=== PATIENT | female | born 1960 | race Caucasian/White ===

== ENCOUNTER 2023-12-21 14:03 | Emergency (ER) | payer OTHER, SELFPAY ==
[2023-12-21 14:10] VITALS: BP 130/74
--- NOTE | 2023-12-21 15:45 | ED.GENMED ---
History of Present Illness
General
Chief Complaint: DVT/Possible Blood Clot
Source: patient
Time Seen by Provider: 12/21/23 15:39
Travel History
Have you had any contact with someone who has COVID-19?: No
Do you have any symptoms of coronavirus? Fever > 100 degrees, chills, cough, shortness of breath, sore throat, loss of taste or smell, muscle aches, or headache?: No
History of Present Illness
History of Present Illness:
63-year-old female with past medical history of cardiac disease status post pacemaker placement, hypothyroidism, PMR presenting to the emergency department for evaluation at the request of her primary care physician after patient noted some pain and
swelling to her left lower leg over the last 24 to 48 hours. Patient denies any trauma. She does note that she felt these lumps' back of her leg which she thought at times looked as if they were moving. She denies any history of similar. No
fevers or infectious symptoms.
Past History
Past History
ED Past Medical History: Arrthythmia (Atrial tachycardia), NIDDM and Hypothyroidism
ED Past Surgical History: Cardiac and
Social History
Tobacco: Non-smoker
Alcohol: None
Drug: None
Personal:
Living: with family
Review of Systems
Review of Systems
All Other Systems: ROS reviewed and negative except as documented in HPI and ROS
Phy Exam
Physical Exam
Physical Exam:
GENERAL: Alert , in no apparent distress
EYE: conjunctiva clear
Head: Normocephalic atraumatic
NECK: Supple,
ENT: mmm.
LUNGS: no acute respiratory distress
NEUROLOGICAL: Alert and oriented
SKIN: Warm and dry, skin intact.
MUSCULOSKELETAL: Mild hyperpigmented skin changes along the anterior lower tib-fib region consistent with peripheral vascular disease/venous insufficiency. Patient has an easily palpable pedal and tibial pulse on the left lower extremity.
Sensation is grossly intact to light touch. Small spider veins but no varicose veins appreciated. No obvious edema compared to the right lower extremity
PSYCH: Normal and appropriate interaction.
Scores
Heart Failure Risk
Heart Failure Risk Score: Not Applicable
Heart Score for Chest Pain Patients
STEMI patient?: Not applicable
Withdrawal Assessment of Alcohol
Withdrawal Assessment Completed?: Not applicable
Course
Orders/Labs/Results
Orders:
Orders
12/21/23 14:14
Venous Doppler Lwr Ext Left [US Periph Venous LOWER Ext LT] Urgent
Comment:
Reason For Exam: leg pain
Vital Signs
Initial and Last Documented VS:
Initial Vital Signs
Temp Pulse Resp BP Pulse Ox
97.6 F 78 18 130/74 97
12/21/23 14:10 12/21/23 14:10 12/21/23 14:10 12/21/23 14:10 12/21/23 14:10
Last Documented Vital Signs
Temp Pulse Resp BP Pulse Ox
97.6 F 64 18 115/65 98
12/21/23 14:10 12/21/23 15:56 12/21/23 15:56 12/21/23 15:56 12/21/23 15:56
MDM/Problems Addressed
Differential Diagnosis Includes:
venous insufficiency, DVT, no concern for arterial compromise
MDM/Problems Addressed:
63-year-old female sent to the emergency department to be evaluated for possibility of DVTs of the left lower extremity. Based off exam I suspect venous insufficiency to be the most likely diagnosis. Patient is in no acute distress.
*Radiology
Radiology exam reviewed: radiology read reviewed
*Pulse Oximetry
Patient hypoxic: no
*Critical Care Note
Total Time (30-74mins, 75-104mins- exclusive of procedures): Not Applicable
Comment
Comment:
Ultrasound returned with no evidence for DVT. Incidental findings were noted however do not appear to have any sign of emergent nature. Patient was hide with a printout of her ultrasound report and can follow-up primary care provider as an
outpatient
ED Attending Note
-
Portions of this chart may have been created with voice recognition software.� Occasional wrong word or��sound alike� substitutions may have occurred due to the inherent limitations of voice recognition software.
Discharge Plan
Departure
Patient Disposition: Home (Routine Discharge)
Date of Disposition: 12/21/23
Time of Disposition: 15:45
Patient with high blood pressure during this ER visit?: No
Discharge Problem:
Venous insufficiency
Instructions: Varicose veins and other vein disease in the legs
Prescriptions:
No Action
multivitamin [Daily Multiple] 1 EACH tablet
1 ea PO DAILY
calcium polycarbophil [Fiber (calcium polycarbophil)] 625 MG tablet
2 capsules PO BIDPRN PRN (Reason: CONSTIPATION )
docusate sodium 100 MG capsule
100 mg PO DAILYPRN PRN (Reason: CONSTIPATION)
levothyroxine 100 MCG tablet
100 mcg PO HS
metformin 1,000 MG tablet
1,000 mg PO Q12
biotin [Appearex] 2,500 MCG tablet
5,000 mcg PO BID
spironolactone 25 MG tablet
25 mg PO HS
sacubitril-valsartan [Entresto] 1 EACH tablet
1 ea PO Q12
amiodarone [Pacerone] 200 MG tablet
200 mg PO HS
furosemide 40 MG tablet
60 mg PO DAILY
carvedilol [Coreg] 25 MG tablet
25 mg PO Q12
mecobalamin (vitamin B12) [B12 Active] 1,000 MCG tablet,chewable
1,000 mcg PO DAILY
Referrals:
Matthieu Wilson DO [Family Provider] -
Interventions
Interventions:
*Risk Screen - Suicide Last Done: 12/21/23 14:13
*General Assessment Last Done: 12/21/23 14:13
*Neglect/Abuse Screening Last Done: 12/21/23 14:13
*ED COVID-19 Vaccine History Last Done: 12/21/23 15:05
*Nursing Disposition Last Done: 12/21/23 15:56
ED- Cardiac Assessment Last Done: 12/21/23 15:06
ED- Pulmonary Assessment Last Done: 12/21/23 15:06
ED-Peripheral Vascular Assessment Last Done: 12/21/23 15:07
ED-Skin Assessment Last Done: 12/21/23 15:06
Discharge Date and Time
Discharge Date/Time: 12/21/23 15:56
Print Language: SAMOAN
[2023-12-21 15:56] VITALS: BP 115/65
== END 2023-12-21 15:56 | disposition home or self-care (01) ==
LOC: EMR 14:03
PROVIDERS: EMERGENCY PHYSICIAN Emergency Medicine; FAMILY PHYSICIAN Family Medicine
DX: I87.2 Venous insufficiency (chronic) (peripheral) (principal); E03.9 Hypothyroidism, unspecified; Z95.0 Presence of cardiac pacemaker
CPT/HCPCS: 99284; 93971

== ENCOUNTER → 2024-01-19 11:11 | Outpatient (REF) | payer OTHER, SELFPAY | LOC: HWWDC 11:11 | PROVIDERS: ATTENDING PHYSICIAN Obstetrics & Gynecology; FAMILY PHYSICIAN Family Medicine | DX: Z12.31 Encounter for screening mammogram for malignant neoplasm of breast (principal) | CPT/HCPCS: 77063; 77067 ==

== ENCOUNTER → 2024-01-24 13:27 | Outpatient (REF) | payer OTHER, SELFPAY | LOC: RAD 13:27 | PROVIDERS: ATTENDING PHYSICIAN Family Medicine | DX: M79.662 Pain in left lower leg (principal) | CPT/HCPCS: 93971 ==

== ENCOUNTER 2024-06-12 11:27 | Day surgery (SDC) | payer OTHER, SELFPAY ==
--- NOTE | 2024-06-10 08:52 | HPS.HSE ---
Family Physician
-
Family Physician: NO INTERVIEW UNKNOWN
Chief Complaint
-
Ventricular tachycardia. Atrial fibrillation. Nonischemic cardiomyopathy.
History of Present Illness
The patient is a 63 year old female presenting today for ventricular tachycardia and nonischemic cardiomyopathy. Her ejection fraction was 40-45% on her most recent echocardiogram in March 2023. She would undergo a dual chamber ICD
implantation in 2015 with eventual biventricular ICD upgrade in 2016 and ICD generator change in 2020 secondary to these diagnoses. She also has a history of atrial fibrillation for which she currently takes Amiodarone and Carvedilol for
pharmacological therapy. She notably has had no significant arrhythmias with her biventricular ICD in place. Her volume status has remained stable. Unfortunately, her battery life is draining quicker than expected given her elevated LV thresholds.
It is recommended she undergo an ICD generator change at this time. She denies any current complaints today such as chest pain, shortness of breath at rest, nausea, vomiting, diarrhea, lightheadedness, dizziness, cough, sore throat, or fever.
Medical History
Past Medical History
Past Medical History: Reports Other
Additional Past Medical History:
1. Ventricular tachycardia, status post dual chamber ICD implantation 2015, biventricular ICD upgrade 2016, and ICD generator change 2020.
2. Nonischemic cardiomyopathy, reduced ejection fraction.
3. Atrial fibrillation, pharmacological therapy with Carvedilol and Amiodarone.
4. Atrial tachycardia, status post ablation.
5. PVCs.
6. Coronary artery disease, nonobstructive by cardiac cath 2015.
7. Chronic systolic heart failure.
8. Mild mitral regurgitation.
9. Mild aortic regurgitation.
10. Venous varicosities with insufficiency.
11. Benign pulmonary nodules.
12. Obstructive sleep apnea, intolerant of CPAP.
13. Chronic kidney disease stage 3.
14. GERD.
15. Colon polyps.
16. Diverticulosis.
17. Fatty liver disease.
18. Vertigo.
19. Balance difficulties.
20. Multilevel degenerative disc disease.
21. Osteoarthritis.
22. Hypothyroidism.
23. Polymyalgia rheumatica.
24. PCOS, previously treated with Metformin.
25. Anxiety.
26. Insomnia.
27. Morbid obesity, BMI 44.3.
Past Surgical History: Reports Other
Additional Past Surgical History:
1. Dual chamber ICD implant.
2. Biventricular ICD upgrade.
3. ICD generator change.
4. Ventricular tachycardia ablation.
5. Atrial tachycardia ablation.
6. Cardiac catheterization.
7. x2.
8. Pilonidal cystectomy.
9. D&E.
10. Sinus surgery.
11. Abdominal fat pad biopsy.
12. Colonoscopy x2.
Social History
Tobacco: Non-smoker
Alcohol: Other (2 glasses of wine reported weekly. )
Personal:
Living: Other (She lives with her and daughter in a 2 story home. )
Family History
Family History: Not pertinent
Allergies / Home Medications
Allergy/Medication List:
Home medications:
1. Amiodarone 200 mg p.o. at bedtime.
2. Appearex 5,000 mcg p.o. twice a day.
3. Biotin 1 dose p.o. every other day.
4. Carvedilol 25 mg p.o. every 12 hours.
5. Colace 100 mg p.o. every other day.
6. Entresto 24-26 mg p.o. twice a day.
7. Furosemide 20 mg p.o. daily.
8. Levothyroxine 125 mcg p.o. at bedtime.
9. Mecobalamin 1,000 mcg p.o. every other day.
10. Multivitamin 1 tablet p.o. daily.
11. Spironolactone 12.5 mg p.o. at bedtime.
12. Zepbound 7.5 mg subcutaneous weekly on Mondays.
13. Zolpidem 5 mg p.o. at bedtime.
14. Calcium 1 tablet p.o. every other day.
15. Jardiance 10 mg p.o. daily.
16. Senna 8.6 mg p.o. every other day.
Allergies: No known allergies.
Review of Systems
-
A 12 point ROS was completed and negative except as noted: Yes
Physical Exam
Vital Signs
Blood pressure 105/56. Heart rate 72. Respirations 18. Pulse ox 96% on room air.
Height 5 feet, 4 inches. Weight 117.1 kg. BMI 44.3.
Physical Exam
General: Well Developed, Well Nourished and No Apparent Distress
HEENT: NormoCephalic, Moist mucous membranes and Atraumatic
Respiratory: Clear
Cardiac: Regular Rhythm and Other (ICD site clean, dry, intact. )
GI: Soft, Non Tender, Non Distended and Other (Morbidly obese. )
Musculoskeletal: Normal Gait & Station and Other (Non-pitting edema of bilateral lower extremities. )
Skin: Warm and Dry
Neuro: AO x 3 and Nonfocal/grossly intact
Laboratory Results
-
DIAGNOSTIC STUDIES as of 06/10/2024: White blood cell count 4.9. Hemoglobin 14.8. Platelet count 207,000. Sodium 143. Potassium 4.7. BUN 30. Creatinine 1.1. Glucose 89. Magnesium 2.3. Calcium 9.1. AST 32. ALT 30. Albumin 4.4.
EKG 06/10/2024: Atrial-sensed ventricular paced rhythm.
Echocardiogram 03/07/2023: Dilated left ventricle with mild left ventricular hypertrophy and mild global hypokinesis with some regional variability, EF 40-45%. Mild mitral regurgitation with leaflet thickening. Mitral annular calcification and
mildly dilated left atrium. Aortic sclerosis with mild aortic regurgitation. Dilated and hypokinetic right ventricle. ICD wire is identified with pulmonary artery systolic pressure of 30-35 mmHg. In September 2021 tricuspid regurgitation was called
moderate; otherwise the 2 studies are similar.
Impression/Plan
-
IMPRESSION/PLAN:
1. Ventricular tachycardia, atrial fibrillation, and nonischemic cardiomyopathy: The patient is in need of an ICD generator change with Dr. Matthieu Keith on 06/12/2024. The benefits and risks of the procedure have been explained to the patient.
The patient understands these risks and wishes to proceed. She will not take Zepbound within a week of her surgery. She has been advised to hold Jardiance 3 days prior.
[2024-06-10 11:55] VITALS: BMI 44.3
[2024-06-10 12:13] LABS: % Eosinophils 1.4 % (0-6); % Immature Granulocytes 0.4 % (0-0.5); % Lymphocytes 22.8 % (20.5-51.1); % Monocytes 6.9 % (1.7-9.3); % Neutrophils 67.5 % (42.2-75.2); Absolute Basophils 0.1 10^3/uL (0-0.2); Absolute Eosinophils 0.1 10^3/uL (0-0.7); Absolute Lymphocytes 1.1 10^3/uL (1.2-3.4); Absolute Monocytes 0.3 10^3/uL (0.1-0.6); Absolute Neutrophils 3.3 10^3/uL (1.4-6.5); Hematocrit 43.3 % (37.0-47.0); Hemoglobin 14.8 g/dL (12.0-16.0); Mean Corp Hgb Conc. 34.2 g/dL (33.0-37.0); Mean Corpuscular Hgb 31.9 pg (27.0-31.0); Mean Corpuscular Volume 93.3 fL (81.0-99.0); Mean Platelet Volume 9.1 fL (7.4-10.4); Nucleated Red Blood Cells % 0 %; Platelet Count 207 10^3/uL (130-400); Red Blood Cell Count 4.64 10^6/uL (4.20-5.40); Red Cell Dist. Width 13.2 % (11.5-14.5); White Blood Cell Count 4.9 10^3/uL (4.8-10.8)
[2024-06-10 12:47] LABS: ALT (SGPT) 30 U/L (0-35); AST (SGOT) 32 U/L (14-36); Albumin 4.4 g/dl (3.5-5.0); Alkaline Phosphatase 79 U/L (38-126); Blood Urea Nitrogen 30 mg/dl (7-17); Calcium 9.1 mg/dl (8.4-10.2); Carbon Dioxide 28 mmol/L (22-30); Chloride 105 mmol/L (98-107); Estimated Creatinine Clearance 66 ml/min; Glucose 89 mg/dl (70-99); Magnesium 2.3 mg/dl (1.6-2.3); Potassium 4.7 mmol/L (3.5-5.1); Sodium 143 mmol/L (135-145); Total Bilirubin 0.7 mg/dl (0.2-1.3); Total Protein 6.7 g/dl (6.3-8.2); eGFR 56.46
[2024-06-12] VITALS (8 sets, daily range): BP systolic 105–116; BP diastolic 50–63; BMI 41.7
--- NOTE | 2024-06-12 12:55 | W.ICD.CONTRA ---
Post ICD/CHEMICAL PROCESS PROJECT ENGINEER-D
-
History of NC?: No
LV Function
Left ventricular function study result?: Ejection Fraction >/= 40%
ACEI/ARB/ARNI
Patient already on ACEI/ARB/ARNI: Yes
Beta-Yessenia
Patient already on Beta Yessenia: Yes
--- NOTE | 2024-06-12 12:57 | ITS.CL.ICD ---
Sulfur Burner - ICD
Implantable Cardioverter Defibrillator
Procedure Report:
ICD GENERATOR CHANGE REPORT
Date of Procedure: June 12, 2024
Primary Care Provider: Dr. Matthieu Wilson
Primary border inspector: Dr. Mp Larsen
PROCEDURES:
Placement of new pacing lead (left bundle branch pacing for cardiac resynchronization)
Removal then implant of new DOOR ASSEMBLER-D
INDICATION FOR PROCEDURE:
Initial indication for implant is secondary prevention with prior history of sustained ventricular tachycardia
ICD at [employer]
Cardiomyopathy with severe left ventricular systolic dysfunction and [place] Heart Association class III, left bundle branch block
She has a history of progressive conduction system disease with QRS widening in the setting of heart failure with reduced ejection fraction and underwent biventricular ICD upgrade February 13, 2017. She has required frequent ICD generator change due to
high LV/coronary sinus lead pacing threshold. Most recently in 2020. She presents today for ICD generator change and also for attempted placement of left bundle branch pacing lead to replace coronary sinus pacing as a form of resynchronization
which should considerably prolong battery longevity.
PROCEDURE:
'Time-out' was called and confirmed. The patient was prepped and draped in sterile fashion. Lidocaine with epi was used for local anesthesia. An incision was made at the left upper chest at the area of the previous implant and the device and
leads were carefully dissected from the pocket. Hemostasis was obtained with electrocautery. Central venous access was obtained via subclavian venipuncture. Using a Seldinger technique and peel-away sheaths, the pacing leads were placed under
fluoroscopic guidance.
Fluoroscopy as well as 'pace mapping' was used to determine likely anatomic site for left bundle branch pacing. The Table8tronic C315 sheath was used to deliver the Medtronic 3830 Selectsecure pacing lead with the helix exposed just exposed from the
sheath tip during continuous monitoring when pacemapping the septum during gentle clockwise rotation to obtain a paced QRS morphology of a W pattern in lead V1. Once the suspected optimal site was identified, lead deployment was performed with
several rapid rotations as paced QRS morphology was intermittently monitored until a paced QRS complex in lead V1 demonstrated development of an R wave (qR).
Stable VEgm injury current is present throughout final lead position including at end of case, suggesting there was no perforation through the septum into the LV cavity.
Final unipolar pacing impedance is 1000 Ohms
Unipolar pacing threshold is stable at 1 V @ 0.4 ms.
BiV pacing from current device produces QRS duration of 152 ms
RV pacing alone from the device produces QRS duration of 198 ms
Final LBB paced QRS complex duration is 122 ms
LVAT is 85 ms
The new left bundle branch pacing lead was connected to the new device header. Then the chronic right atrial lead and chronic right ventricular lead were from the old device and connected to the header on the new device. The previously
placed coronary sinus lead was from the old device and capped.
The pocket was liberally irrigated with antibiotic solution. Once testing (see below) showed adequate and stable function, the leads and generator were placed within the pocket (Antibiotic pouch placed). The pocket was closed in the typical fashion.
REMOVED ICD:
Medtronic; Model#[id number], Serial# [id number]
CHRONIC LEADS:
Atrial Lead: Medtronic: Model# 5076; Serial# [id number]
Right Ventricular Lead: Medtronic; Model# 6935; Serial#[id number]
ABANDONED LEAD:
Left Ventricular Lead: Medtronic; Model# 4298; Serial#[id number]
IMPLANTED ICD:
MEDTRONIC VBFX5Q8, SN [id number]
IMPLANTED PACING LEAD:
Medtronic 3830 , SN:[id number], Interventricular septum at LBB
DEVICE TESTING:
Sensing: RA 3.6 mV, RV NA (No Escape)
Capture: RA 0.5 V@ 0.4 ms, RV 0.5 V@ 0.4 ms, LBB 0.5 V@ 0.4 ms,
Ohms: RA 399 , RV 342 , LBB 1159
FINAL PROGRAMMING:
Giovany Pacing: DDDR 50 - 130 ppm
Tachy parameters:
VF: 188 bpm, ATP while charging, Shock
CONCLUSIONS:
1. Explant of ICD at [employer]
2. Successful implant ICD generator.
3. Normal function of ICD and leads at implant testing.
RECOMMENDATIONS:
In-Office wound check in 7 - 10 days.
Copy to:
Dr. Matthieu Wilson
Dr. Mp Larsen
--- NOTE | 2024-06-12 17:15 | PTCARENOTE ---
Received pt post lead revision. VSS. Left ACW w/ aquacel dressing intact. Left arm sling on pt until the am. Pt's post CXR obtained.
[2024-06-12] MEDS: ANCEF 5 IV (19:31)
[2024-06-12] MEDS: ENTRESTO 24 MG/26 MG 1 TAB PO (19:32)
[2024-06-12] MEDS: COREG 12.5 MG PO (19:32)
[2024-06-12] MEDS: ALDACTONE 12.5 MG PO (22:04)
[2024-06-12] MEDS: PACERONE 200 MG PO (22:05)
[2024-06-12] MEDS: SYNTHROID 125 MCG PO (22:05)
[2024-06-12] MEDS: TYLENOL 650 MG PO (22:05)
--- NOTE | 2024-06-12 22:55 | PTCARENOTE ---
Received patient at change of shift. V paced on the monitor, HR in the 70s. VSS. L chest pressure dressing and sling in place. No evidence of hematoma. Pt complains of 2/10 pain at pacer site, PRN Tylenol administered as per OCT. Call clark within
reach.
[2024-06-13 03:45] VITALS: BP 111/53
[2024-06-13] MEDS: ANCEF 5 IV (03:48)
[2024-06-13] MEDS: TYLENOL 650 MG PO (03:48)
[2024-06-13 06:14] LABS: Hepatitis C Antibody Negative (Negative)
[2024-06-13 07:47] VITALS: BP 105/82
[2024-06-13] MEDS: LASIX 20 MG PO (08:13)
[2024-06-13] MEDS: ENTRESTO 24 MG/26 MG 1 TAB PO (08:14)
[2024-06-13] MEDS: COREG 12.5 MG PO (08:14)
[2024-06-13] MEDS: FARXIGA 10 MG PO (08:14)
--- NOTE | 2024-06-13 08:41 | PTCARENOTE ---
Pt AOx3, no complaints of pain or discomfort. Paced on tele monitor, VSS. Independent OOB. Plan for discharge later this AM. call clark within reach.
--- NOTE | 2024-06-13 08:51 | W.PN.CARDCBS ---
Addendum entered and electronically signed by Matthieu Keith MD 06/13/24 10:25:
Patient seen, interviewed and examined by me.
Well-appearing, no acute distress
Dressing at left upper chest is clean and dry
Regular rate and rhythm with normal S1 and S2, no S3 no S4. There is a grade 1/6 apical holosystolic murmur and no rubs. PMI is normally placed.
Lungs are clear to auscultation bilaterally without wheezes rales or rhonchi.
Abdomen soft nontender nondistended with normoactive bowel sounds
Extremities show trace pretibial edema bilaterally no clubbing or cyanosis.
Neurologic exam is grossly nonfocal.
We reviewed yesterday's procedures, findings and results in detail. I described to her that I was able to place a left bundle branch pacing lead for cardiac resynchronization with excellent capture threshold and likely also improved cardiac
resynchronization (more narrow QRS than previous BiV pacing and previous coronary sinus only pacing). This should add a number of years to battery longevity.
We discussed that she should continue her current guideline directed medical therapy for heart failure with reduced ejection fraction.
We also discussed in detail arm motion restrictions.
All of her questions have been answered.
She is stable for discharge from a cardiac standpoint.
Office follow-up and discharge instructions reviewed.
Original Note:
Today's Communication / Plan
-
stable for d/c home
Impression / Plan
-
Primary Care Provider: Dr. Matthieu Wilson
Primary school commissioner: Dr. Mp Larsen
Impression:
Chronic NICMP EF 40-45%
post BiV ICD upgrade 2016
VT post ICD
LBBB
LV lead with high threshold s/p new Left bundle lead placement 06/12/24
PAF/Atrial tachycardia post ablation
Non obstructive CAD
HARJINDER/CPAP
CKD3a
GERD
Hypothyroidism
PMR
DDD
Anxiety
Morbid obesity
Plan:
post new LBB pacing lead and Generator change 06/12/24
site stable
tele AsVpaced
CXR no PTX
HF continue spironolactone, Entresto, Jardiance, Lasix, carvedilol
Activity restrictions reviewed
inc check 1 week
stable for d/c home
Progress Note - Dobby Loom Weaver
Subjective
Date of Service: June 13, 2024
denies cp, sob
Objective
Labs:
06/10/24 12:03
06/10/24 12:03
Labs
Hgb 14.8 g/dL (12.0-16.0) 06/10/24 12:03
Hct 43.3 % (37.0-47.0) 06/10/24 12:03
Plt Count 207 10^3/uL (130-400) 06/10/24 12:03
Sodium 143 mmol/L (135-145) 06/10/24 12:03
Potassium 4.7 mmol/L (3.5-5.1) 06/10/24 12:03
BUN 30 mg/dl (7-17) H 06/10/24 12:03
Creatinine 1.1 mg/dL (0.6-1.0) H 06/10/24 12:03
Glucose 89 mg/dl (70-99) 06/10/24 12:03
Vital Signs and I&O:
Vital Signs
Temp Pulse Resp BP Pulse Ox
97.6 F 81 20 105/82 95
06/13/24 07:45 06/13/24 08:15 06/13/24 07:45 06/13/24 08:13 06/13/24 07:47
Vital Signs
Temp Pulse Resp BP Pulse Ox
97.6 F 81 20 105/82 95
06/13/24 07:45 06/13/24 08:15 06/13/24 07:45 06/13/24 08:13 06/13/24 07:47
Physical Exam
Physical Exam
NAD, AOx3
S1, S2, RRR
CTAB, non labored, no wheeze
SNTND bsx4
L CW dressing c/d/i, pressure dressing removed, scant dried drainage, no HT
--- NOTE | 2024-06-13 09:00 | CM ---
Reviewed chart. Met with Mrs. Adams to review discharge plans. She states prior to admission she resides with her spouse and daughter in a two story home with two steps to enter. She states she has a full flight of steps to get to bedroom/full
bathroom. She states she has a powder room on the first floor. Prior to admission she was independent with ambulation and adls. She states she has a prescription plan. The discharge plan is to return home with her spouse and daughter when
medically stable.
[2024-06-13 09:10] VITALS: BMI 42.1
--- NOTE | 2024-06-13 17:14 | W.DS.TRANS ---
DC Summary - Test Architect
-
Discharge Instructions:
Discharge Diagnosis/Procedures BiV ICD generator change and new LV lead
Diet Low Cholesterol,2 Gram Sodium
Driving Restrictions No driving for 1 week
Bathing Restrictions OK to Shower
Instructions:
Stand-Alone Forms: DC Inst - Implanted Device
Changes to Home Medications: No
Discharge Medications:
DC Medications w/original date entered in MRI Interventions
docusate sodium 100 mg capsule 100 mg PO Q48H 11/06/13
multivitamin (Daily Multiple tablet) 1 ea PO DAILY 11/06/13
levothyroxine 100 mcg tablet 125 mcg PO HS 02/13/17
spironolactone 25 mg tablet 12.5 mg PO HS 02/13/17
amiodarone 200 mg tablet (Pacerone) 200 mg PO HS 02/15/17
furosemide 40 mg tablet 20 mg PO DAILY 02/13/18
carvedilol 25 mg tablet (Coreg) 12.5 mg PO Q12 10/21/20
mecobalamin (vitamin B12) 1,000 mcg chewable tablet (B12 Active) 1,000 mcg PO Q48H 10/21/20
biotin 1 dose PO Q48H 06/05/24
tirzepatide (weight loss) 7.5 mg/0.5 mL subcutaneous pen injector (Zepbound) 7.5 mg SC MO 06/05/24
zolpidem 5 mg tablet 5 mg PO HS 06/05/24
calcium 1 tab PO Q48H 06/10/24
empagliflozin 10 mg tablet (Jardiance) 10 mg PO DAILY 06/10/24
sacubitril 24 mg-valsartan 26 mg tablet (Entresto) 1 tab PO BID 06/10/24
sennosides 8.6 mg capsule (senna) 8.6 mg PO Q48H 06/10/24
Golo 1 cap PO TID weight loss 06/12/24
camphor 3.1 %-methyl salicylate 15 %-menthol 10 % topical gel (Salonpas Deep Relieving) 1 ea topical HS 06/12/24
Home Medication Changes
Pending Results: No
== END 2024-06-13 10:42 | disposition home or self-care (01) ==
LOC: CATH 11:27
PROVIDERS: Internal Medicine Cardiovascular Disease; ATTENDING PHYSICIAN Internal Medicine Cardiovascular Disease; FAMILY PHYSICIAN Family Medicine; OTHER PHYSICIAN Internal Medicine Cardiovascular Disease
DX: Z45.02 Encounter for adjustment and management of automatic implantable cardiac defibrillator (principal); I47.20 Ventricular tachycardia, unspecified; T82.1 Mechanical complication of cardiac electronic device; Y83.9 Surgical procedure, unspecified as the cause of abnormal reaction of the patient, or of later complication, without mention of misadventure at the time of the procedure; I42.8 Other cardiomyopathies; I47.19 Other supraventricular tachycardia; I49.3 Ventricular premature depolarization; I25.10 Atherosclerotic heart disease of native coronary artery without angina pectoris; I50.22 Chronic systolic (congestive) heart failure; I08.0 Rheumatic disorders of both mitral and aortic valves; I83.90 Asymptomatic varicose veins of unspecified lower extremity; I87.2 Venous insufficiency (chronic) (peripheral); K21.9 Gastro-esophageal reflux disease without esophagitis; G47.33 Obstructive sleep apnea (adult) (pediatric); Z86.0100 Personal history of colon polyps, unspecified; K76.0 Fatty (change of) liver, not elsewhere classified; R42 Dizziness and giddiness; M19.90 Unspecified osteoarthritis, unspecified site; E03.9 Hypothyroidism, unspecified; M35.3 Polymyalgia rheumatica; E28.2 Polycystic ovarian syndrome; F41.9 Anxiety disorder, unspecified; G47.00 Insomnia, unspecified; E66.01 Morbid (severe) obesity due to excess calories; Z68.41 Body mass index [BMI] 40.0-44.9, adult; Z79.899 Other long term (current) drug therapy; Z79.84 Long term (current) use of oral hypoglycemic drugs; Z79.890 Hormone replacement therapy; I44.7 Left bundle-branch block, unspecified; N18.31 Chronic kidney disease, stage 3a; I48.0 Paroxysmal atrial fibrillation; Z98.890 Other specified postprocedural states
CPT/HCPCS: 33249; 33241; 36415; 71045; 80053; 83735; 85025; 86803; 93005; C1769; C1882; C1887; C1892; C1898; Q9967

== ENCOUNTER → 2024-11-01 08:24 | Outpatient (REF) | payer OTHER, SELFPAY ==
--- NOTE | 2024-11-01 09:39 | CARDSERVLU ---
Echocardiogram with Lumason completed after protocol screening completed. Allergies verified.
Patent IV site: __left AC___
IV site flushed with 0.9% NaCl pre and post administration.
Diluted bolus method utilized to enhance visualization of ventricular garcia.
Total volume given: ___4.0_ mL
Patient tolerated all procedures well without complications.
#22 peterson left AC placed. Lumason given. INT d/c'd. dsg appled. Pressure held. No bleeding noted.
== END ==
LOC: RCS 08:24
PROVIDERS: ATTENDING PHYSICIAN Internal Medicine Cardiovascular Disease; FAMILY PHYSICIAN Family Medicine
DX: R06.09 Other forms of dyspnea (principal); I48.91 Unspecified atrial fibrillation; I50.22 Chronic systolic (congestive) heart failure
CPT/HCPCS: 93306; Q9950